=== PATIENT | female | born 1955 | race Caucasian/White ===

== ENCOUNTER 2016-07-20 03:45 | Observation (INO) | payer BC ==
[~2016-07-20 03:45] MED LIST: ENTERIC COATED325 M PO; LORTAB 5/500 TA1 TAB PO; NORCO 5/325 TAB1 TAB PO; PREDNISONE20 MG PO; PROVENTIL HFA6.7 GM IH; WELLBUTRIN
[2016-07-20] MEDS ORDERED: CYCLOBENZAPRINE5 M1 PO (03:52)
[2016-07-20] MEDS ORDERED: NORVASC5 M2 PO (03:52)
[2016-07-20] MEDS ORDERED: COZAAR100 M1 PO (03:53)
[2016-07-20 05:14] LABS: URINE BILIRUBIN NEGATIVE (NEG); URINE BLOOD NEGATIVE (NEG); URINE GLUCOSE (UA) NEGATIVE (NEG); URINE KETONE NEGATIVE (NEG); URINE LEUKOCYTE ESTERASE NEGATIVE (NEG); URINE NITRITE NEGATIVE (NEG); URINE PROTEIN NEGATIVE (NEG); URINE SPECIFIC GRAVITY 1.005 (1.003-1.030)
[2016-07-20 05:16] LABS: URINE APPEARANCE CLEAR; URINE COLOR YELLOW
[2016-07-20 05:24] LABS: BASO % 1.3 % (0-2); BASO ABSOLUTE COUNT 0.1 tho/cmm (0.0-0.2); EOS % 6.1 % (0-7); EOSINOPHIL ABSOLUTE COUNT 0.4 tho/cmm (0.0-0.7); HCT-HEMATOCRIT 39.4 % (34.0-49.0); HGB-HEMOGLOBIN 13.8 gm/dl (12.0-15.5); IMMATURE GRANULOCYTES ABSOLUTE 0.02 tho/cmm (0-0.03); IMMATURE GRANULOCYTES PERCENT 0.3 % (0-0.3); LYMPH % 35.2 % (20-45); LYMPH ABSOLUTE COUNT 2.4 tho/cmm (0.8-4.5); MCH (MEAN CORPUSCULAR HGB) 35.5 pg (28.0-32.0); MCV (MEAN CELL VOLUME) 101.3 fl (82.0-96.0); MEAN PLATELET VOLUME 10.2 cmc (9.4-12.4); MONO % 12.8 % (0-12); MONOCYTE ABSOLUTE COUNT 0.9 tho/cmm (0.0-1.2); NEUTROPHIL ABSOLUTE COUNT 3.1 tho/cmm (1.6-8.0); NEUTROPHIL-AUTOMATED 3.1 tho/cmm (1.6-8.0); NEUTROPHILS % 44.3 % (40-80); PLATELET COUNT 266 tho/cmm (150-450); RED BLOOD COUNT 3.89 mil/cmm (4.00-5.20); WHITE BLOOD COUNT 6.9 tho/cmm (4.0-10.0)
[2016-07-20 05:34] LABS: ANION GAP 15 mmol/L (0-20); BLOOD UREA NITROGEN 4 mg/dl (6-24); CALCIUM 8.3 mg/dl (8.5-10.5); CARBON DIOXIDE-VENOUS 21 mmol/L (22-32); CHLORIDE 107 mmol/l (96-110); CREATININE 0.48 mg/dl (0.50-1.10); GLUCOSE 89 mg/dL (70-110); POTASSIUM 3.8 mmol/L (3.7-5.1); SODIUM 139 mmol/L (135-145); eGFR VALUE FOR BLACK >90 mL/Min
[2016-07-20 08:40] LABS: ALB/GLOB RATIO 0.9 (0.8-2.0); ALBUMIN 3.5 g/dl (3.5-5.0); ALKALINE PHOSPHATASE 181 U/L (33-138); ALT/SGPT 76 U/L (12-78); BILIRUBIN,INDIRECT 0.1 mg/dL (0.0-1.0); BILIRUBIN,TOTAL 0.2 mg/dl (0-1.5); C-REACTIVE PROTEIN <0.3 mg/dl (0-0.9)
[2016-07-20 08:41] LABS: AST/SGOT 90 U/L (10-40); BILIRUBIN,DIRECT <0.1 mg/dl (0.0-0.3)
[2016-07-20] MEDS ORDERED: IBUPROFEN400 M1 PO (15:56)
[2016-07-20] MEDS ORDERED: TYLENOL EXTRA500 M1 PO (15:56)
[2016-07-20] MEDS ORDERED: ULTRAM50 M1 PO (15:56)
[2016-07-20] MEDS ORDERED: BREO ELLIPTA 11 EAC1 INH (16:52)
[2016-07-20] MEDS ORDERED: DICLOFENAC SODI50 M1 PO (16:52)
[2016-07-20] MEDS ORDERED: NORCO 5-325 TA1 EACH PO (16:52)
[2016-07-20] MEDS ORDERED: PROAIR HFA8.5 GM INH (16:53)
== END 2016-07-20 16:20 ==
LOC: EDMED 03:45 → EMR2 08:40 → 5EB 09:40
PROVIDERS: Emergency Medicine; ADMIT Hospitalist
DX: M54.5 Low back pain (principal); M48.56XA Collapsed vertebra, not elsewhere classified, lumbar region, initial encounter for fracture; I10 Essential (primary) hypertension; M85.88 Other specified disorders of bone density and structure, other site; Z79.899 Other long term (current) drug therapy; F17.210 Nicotine dependence, cigarettes, uncomplicated; F10.20 Alcohol dependence, uncomplicated
CPT/HCPCS: G0378; G8978-GO-CH; G8978-GP-CJ; G8979-GO-CH; G8979-GP-CJ; G8980-GO-CH; G8980-GP-CJ; J2270; J2405